=== PATIENT | female | born 1980 | race Caucasian/White ===

== ENCOUNTER 2025-03-25 22:02 | Emergency (ER) | payer MEDICAID ==
[~2025-03-25] VITALS: Ht 165.1 cm; Wt 69.0 kg
[2025-03-25 22:15] VITALS: O2SAT 98
[2025-03-25 23:36] LABS: BASOPHILS % 0.4 % (0.0-2.0); EOSINOPHILS % 8.2 % (0.0-5.0); HEMATOCRIT. 39.9 % (36.0-48.0); HEMOGLOBIN. 13.1 g/dL (12.0-16.0); LYMPHOCYTES % 23.8 % (20.0-50.0); MEAN PLATELET VOLUME 9.1 fl (7.4-10.4); MONOCYTES % 4.2 % (2.0-8.0); NEUTROPHILS % 63.4 % (40.0-76.0); PLATELET 261 x1000/uL (130-400); RED BLOOD CELL COUNT 4.32 mill/uL (4.2-5.4); RED CELL DISTRIBUTION WIDTH 15.4 % (11.6-14.6)
[2025-03-25 23:47] LABS: CREATININE 0.9 mg/dL (0.6-1.0)
[2025-03-25 23:48] LABS: ETHANOL BLOOD < 10 mg/dL (<10); PROTEIN TOTAL 7.8 g/dL (6.0-8.3); UREA NITROGEN BLOOD 10 mg/dL (9-23)
[2025-03-25 23:49] LABS: ASPARTATE AMINOTRANSFERASE 15 IU/L (<34); TROPONIN I HIGH SENSITIVITY < 4 ng/L (3.0-34)
[2025-03-25 23:50] LABS: BILIRUBIN DIRECT < 0.1 mg/dL (<=3.0); BILIRUBIN TOTAL 0.2 mg/dL (0.1-1.0); INR 1.0
[2025-03-26 00:13] LABS: HCG SCREEN NEGATIVE
[2025-03-26 00:35] LABS: CLARITY URINE CLEAR (CLEAR); COLOR URINE YELLOW (YELLOW); GLUCOSE URINE NEGATIVE (NEGATIVE); KETONES URINE NEGATIVE (NEGATIVE); LEUKOCYTE ESTERASE URINE NEGATIVE (NEGATIVE); NITRITE URINE NEGATIVE (NEGATIVE); OCCULT BLOOD URINE 2+ (NEGATIVE); PH URINE 6.0 (4.5-8.0); PROTEIN URINE NEGATIVE (NEGATIVE); SPECIFIC GRAVITY URINE 1.015 (1.005-1.030); UROBILINOGEN URINE 0.2 E.U./dL (0.2-1.0)
[2025-03-26 00:39] LABS: *AMPHETAMINES SCREEN URINE NEGATIVE (NEGATIVE); *BARBITURATES SCREEN URINE NEGATIVE (NEGATIVE); *BENZODIAZEPINES SCREEN URINE NEGATIVE (NEGATIVE); *COCAINE SCREEN URINE NEGATIVE (NEGATIVE); CANNABINOID URINE SCREEN NEGATIVE (NEGATIVE); ECSTASY MDMA SCREEN URINE NEGATIVE (NEGATIVE); METHADONE URINE SCREEN NEGATIVE (NEGATIVE); OPIATES URINE SCREEN NEGATIVE (NEGATIVE); PHENCYCLIDINE URINE SCREEN NEGATIVE (NEGATIVE)
[2025-03-26] MEDS: ACETAMINOPHEN 325MG TABLET PO NR (01:17)
[2025-03-26 01:25] LABS: TROPONIN I HIGH SENSITIVITY < 4 ng/L (3.0-34)
[2025-03-26 01:48] LABS: BACTERIA URINE NONE SEEN; RBC URINE NONE SEEN /hpf (0-2); SQUAMOUS EPITHELIAL CELL URINE NONE SEEN /lpf (RARE/1+); WBC URINE NONE SEEN /hpf (0-2)
[2025-03-26 01:55] VITALS: BP 98/55; PULSE 72; RESP 16; TEMP 36.8; O2SAT 98
== END 2025-03-26 02:11 | disposition home or self-care (01) ==
LOC: ER 22:02 → CMPBEDREQ 03-26 02:32
DX: R07.9 Chest pain, unspecified (principal); E03.9 Hypothyroidism, unspecified; R06.02 Shortness of breath; Z79.899 Other long term (current) drug therapy
CPT/HCPCS: 36415; 71045; 80048; 80076; 80305; 80320; 81003; 81025; 83880; 84484; 84703; 85025; 93005; 99285; G0480